=== PATIENT | female | born 2005 | race Caucasian/White ===

== ENCOUNTER 2025-05-31 17:39 | Emergency (ER) | payer SELFPAY ==
[2025-05-31 17:41] VITALS: BP 129/87
--- NOTE | 2025-05-31 23:03 | ED.SKININJ ---
HPI-Injury
General
Chief Complaint: Bite
Source: patient
Exam Limitations: none
Time Seen by Provider: 05/31/25 22:17
Nursing documentation reviewed up to this point in time: agreed with
History of Present Illness-Injury
Is this injury a work related problem?: Yes
Is pt an associate of [facility]?: No
Initial Injury comments:
Note:
CHIEF COMPLAINT(S)
Cat bite on finger.
HISTORY OF PRESENT ILLNESS
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 She presented after sustaining a bite to her finger by an 8-week-old feral kitten while rescuing it along with its sibling and mother from under a porch. The incident
resulted in puncture wounds on her finger. The patient did not report any previous allergies to rabies vaccines or medications. She mentioned that her employer expressed concern about the risk of infection and suggested that she may need
antibiotics. The patient experienced initial pain following the bite, which has since reduced without any burning or noticeable numbness. No additional bites or injuries were reported. She had received a tetanus booster within the last five years.
The mother cat was unvaccinated, and the patients foster mother was also bitten by the same cat and received antibiotics.
PAST MEDICAL AND SURGICAL HISTORY
The patient reports no significant medical or surgical history.
SOCIAL DETERMINANTS AFFECTING HEALTH
The patient works at a veterinary clinic, which potentially increases her exposure to animal-related injuries. No additional social determinants affecting health were discussed.
MEDICATIONS
The patient is not currently on any medications.
REVIEW OF SYSTEMS
- Skin: 2 small puncture wounds on the finger with initial pain, currently resolving.
- Neurological: No numbness, tingling, or inability to move the finger reported.
PHYSICAL EXAM
General: Alert, no acute distress.
Skin: Warm, dry, puncture wounds on finger from a cat bite, no signs of infection noted.
Brisk capillary refill
Head: Normocephalic, atraumatic.
Neck: Supple, trachea midline.
Eye Ears, nose, mouth and throat: Oral mucosa moist.
Cardiovascular: Normal peripheral perfusion, No edema.
Respiratory: Respirations are non-labored.
Gastrointestinal: Abdomen nondistended
Back: Normal range of motion, Normal alignment.
Musculoskeletal: Normal range of motion, normal strength in affected finger. No tenderness to palpation.
Neurological: Alert and oriented to person, place, time, and situation, No focal neurological deficit observed.
Psychiatric: Cooperative, appropriate mood & affect.
PLAN
- Administer rabies vaccine series and immunoglobulin.
- Provide intramuscular immunoglobulin instead of directly injecting into the wound.
- Start the patient on antibiotics, specifically amoxicillin, to prevent infection.
- Instruct the patient to follow up with her family doctor in about a week to assess healing and ensure there is no worsening of pain, swelling, or loss of function in the finger.
- Advise the patient to monitor for any signs of infection such as increased swelling, redness, or inability to flex the finger.
DIFFERENTIAL DIAGNOSIS
The Differential Diagnosis includes, in no particular order and is not limited to:
- Bacterial skin infection
- Cat scratch disease
- Cellulitis
- Septic arthritis
- Tenosynovitis
- Rabies exposure
- Puncture wound abscess
- Tetanus
- Lymphangitis
- Local allergic reaction
Disposition:
SUMMARY OF ENCOUNTER
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 On examination, there were small puncture wounds noted on the anterior
surface of the finger with no foreign body detected. The patient showed no tenderness to palpation, intact sensation, and good capillary refill. She reported receiving a tetanus booster within the last five years. Due to the risk of bacterial
infection, she was started on amoxicillin/clavulanate (Augmentin) prophylactically.
DISPOSITION
Discharge.
ASSESSMENT
The patient sustained a cat bite on the finger, raising concerns about potential bacterial infection.
EMERGENCY TREATMENTS ADMINISTERED
Prescribed amoxicillin clavulanate (Augmentin).
PLAN
The patient was prescribed antibiotics as a preventive measure against infection. She was advised to monitor the wound for signs of infection and follow up with her primary care provider.
PATIENT EDUCATION AND COUNSELING
The patient was advised on the importance of monitoring the bite wound for any signs of infection, such as increasing redness, swelling, or discharge.
FOLLOW-UP INSTRUCTIONS
The patient was instructed to follow up with her primary care provider.
MEDICATION RECONCILIATION
The patient was administered amoxicillin/clavulanate (Augmentin) to prevent infection from the cat bite.
MEDICAL DECISION MAKING
- Number and Complexity of Problems Addressed:
- DDX
Bacterial skin infection, Cat scratch disease, Cellulitis, Septic arthritis, Tenosynovitis, Rabies exposure, Puncture wound abscess, Tetanus, Lymphangitis, Local allergic reaction.
- Risk:
- Prescription medication was prescribed: amoxicillin/clavulanate (Augmentin).
DIAGNOSIS
- Cat bite, right middle finger (ICD-10: W55.03XA)
- Prophylactic bacterial infection prevention with antibiotics (ICD-10: Z29.8)
Subsequent doses of rabies vaccines
Review of Systems
Review of Systems
All Other Systems: ROS reviewed and negative except as documented in HPI and ROS
Phy Exam
Physical Exam
Physical Exam:
see hpi
Course
Orders/Labs/Results
Orders:
Orders
05/31/25 23:10
Amoxicillin 875 mg/Clav 125 mg [Augmentin 875 mg/125 mg] 1 tablet PO NOW STA
05/31/25 23:15
Rabies Vaccine (Pcec)/Pf [Rabavert Rabies Vacc W-Diluent] 2.5 unit IM .ONCE ONE
05/31/25 23:17
Rabies Immune Globulin/Pf [HyperRAB] 1,456 unit IM NOW STA
Vital Signs
Initial and Last Documented VS:
Initial Vital Signs
Temp Pulse Resp BP Pulse Ox
98 F 64 16 129/87 100
05/31/25 17:41 05/31/25 17:41 05/31/25 17:41 05/31/25 17:41 05/31/25 17:41
Last Documented Vital Signs
Temp Pulse Resp BP Pulse Ox
98 F 61 16 121/73 98
05/31/25 17:41 05/31/25 23:16 05/31/25 23:16 05/31/25 23:16 05/31/25 23:16
*Pulse Oximetry
SaO2: 100
Oxygen Mode of Delivery: Room air
Patient hypoxic: no
*Critical Care Note
Total Time (30-74mins, 75-104mins- exclusive of procedures): Not Applicable
ED Attending Note
-
Portions of this chart may have been created with voice recognition software.� Occasional wrong word or��sound alike� substitutions may have occurred due to the inherent limitations of voice recognition software.
Discharge Plan
Departure
Patient Disposition: Home (Routine Discharge)
Date of Disposition: 05/31/25
Time of Disposition: 23:45
Patient with high blood pressure during this ER visit?: Yes
Discharge Problem:
Cat bite
Instructions: Rabies Vaccine, Animal bites - ED (DC), BLOOD PRESSURE
Prescriptions:
New
RabAvert (PF) 2.5 unit suspension for reconstitution
2.5 unit IM ONCE Qty: 3 0RF
Rx Instructions:
Please inject 2.5 units once daily on 06/03/25, 06/07/25, 06/13/25
amoxicillin-pot clavulanate 875-125 mg tablet
1 tab PO BID 7 Days Qty: 14 0RF
No Action
nitrofurantoin monohyd/m-cryst 100 MG capsule
100 mg PO BID 5 Days Qty: 10 0RF
cyclobenzaprine 10 MG tablet
10 mg PO TIDPRN PRN (Reason: back pain) Qty: 15 0RF
Referrals:
Kike Frias DO [Family Provider, Family Practice]
Stand Alone Forms: Rabies Vaccine Post Exp Dosing
Activity Restrictions/Additional Instructions:
[facility]:
Please report to the infusion center on the scheduled days to have your 3 subsequent vaccine doses. Received your first dose of Augmentin today. Please take 1 tablet twice daily for 7 days.
PLEASE RETURN TO ER SHOULD YOU DEVELOP REDNESS, SWELLING OR PAIN, INABILITY TO FLEX or extend the finger, fevers or chills, purulent drainage, or any other signs or symptoms of infection concerning to you.
Please follow-up with family doctor for reassessment next week.
Interventions
Interventions:
*Risk Screen - Suicide Last Done: 05/31/25 17:44
*General Assessment Last Done: 05/31/25 20:59
*Neglect/Abuse Screening Last Done: 05/31/25 17:44
*ED- Fall Risk Assessment Last Done: 05/31/25 20:59
*ED COVID-19 Vaccine History Last Done: 05/31/25 20:59
*ED Influenza Vaccine History Last Done: 05/31/25 20:59
*Nursing Disposition Last Done: 06/01/25 00:44
ED-Skin Assessment Last Done: 05/31/25 21:30
Discharge Date and Time
Discharge Date/Time: 06/01/25 00:45
Print Language: STATELESS
[2025-05-31 23:16] VITALS: BP 121/73
[2025-05-31] MEDS: AUGMENTIN 875 MG/125 MG 1 TABLET PO (23:40)
[2025-05-31] MEDS: RABAVERT RABIES VACC W-DILUENT 2.5 UNIT IM (23:41)
== END 2025-06-01 00:45 | disposition home or self-care (01) ==
LOC: EMR 17:39
PROVIDERS: EMERGENCY PHYSICIAN Student in an Organized Health Care Education/Training Program; FAMILY PHYSICIAN Family Medicine
DX: S61.232A Puncture wound without foreign body of right middle finger without damage to nail, initial encounter (principal); W55.01XA Bitten by cat, initial encounter; Y99.0 Civilian activity done for income or pay; Z20.3 Contact with and (suspected) exposure to rabies; Z23 Encounter for immunization; Z29.14 Encounter for prophylactic rabies immune globulin
CPT/HCPCS: 96372; 90471; 99284; 90375; 90675

== ENCOUNTER 2025-06-07 13:04 | Outpatient (RCR) | payer OTHER, SELFPAY ==
[2025-06-03 15:23] VITALS: BP 119/69
[2025-06-03] MEDS: RABAVERT RABIES VACC W-DILUENT 2.5 UNIT IM (15:33)
[2025-06-07 13:14] VITALS: BP 110/62
[2025-06-07] MEDS: RABAVERT RABIES VACC W-DILUENT 2.5 UNIT IM (13:23)
== END 2025-06-08 09:41 | disposition home or self-care (01) ==
LOC: OID 13:04
PROVIDERS: ATTENDING PHYSICIAN Physician Assistant; FAMILY PHYSICIAN Family Medicine
DX: Z20.3 Contact with and (suspected) exposure to rabies (principal); Z23 Encounter for immunization
CPT/HCPCS: 90471; 90675

== ENCOUNTER 2025-06-14 15:13 | Outpatient (RCR) | payer OTHER, SELFPAY ==
[2025-06-14 15:20] VITALS: BP 117/81
[2025-06-14] MEDS: RABAVERT RABIES VACC W-DILUENT 2.5 UNIT IM (15:32)
== END 2025-06-15 11:33 | disposition home or self-care (01) ==
LOC: OID 15:13
PROVIDERS: ATTENDING PHYSICIAN Physician Assistant; FAMILY PHYSICIAN Family Medicine
DX: Z20.3 Contact with and (suspected) exposure to rabies (principal); Z23 Encounter for immunization
CPT/HCPCS: 90471; 90675